=== PATIENT | male | born 1985 | race African-American/Black ===

== ENCOUNTER 2024-01-04 19:15 | Emergency (ER) | payer OTHER ==
[~2024-01-04] VITALS: Ht 182.9 cm; Wt 166.5 kg
[2024-01-04 19:36] VITALS: PULSE 84; RESP 20; TEMP 98.3
[2024-01-04] MEDS: IBUPROFEN 600 MG TAB PO STA (20:44)
[2024-01-04] MEDS ORDERED: AMOX TR-K CLV1 EAC2 PO (20:55)
[2024-01-04] MEDS ORDERED: ULTRAM 50MG50 MG PO (20:56)
[2024-01-04] MEDS ORDERED: NAPROSYN500 MG PO (20:56)
[2024-01-04] MEDS: AMOXICILLIN/CLAVULANATE K 875 MG TAB PO STA (21:08)
[2024-01-04 21:10] VITALS: BP 167/95; PULSE 84; RESP 18; TEMP 98.3; O2SAT 97
== END 2024-01-04 21:10 | disposition home or self-care (01) ==
LOC: FSED 19:20
DX: K11.21 Acute sialoadenitis (principal); R51.9 Headache, unspecified; I10 Essential (primary) hypertension; E66.01 Morbid (severe) obesity due to excess calories; Z68.42 Body mass index [BMI] 45.0-49.9, adult
CPT/HCPCS: 99282

== ENCOUNTER 2024-02-02 22:15 | Emergency (ER) | payer OTHER ==
[~2024-02-02] VITALS: Ht 182.9 cm; Wt 166.5 kg
[~2024-02-02 22:15] MED LIST: AMOX TR-K CLV1 EAC2 PO; NAPROSYN500 MG PO; ULTRAM 50MG50 MG PO
[2024-02-02] MEDS: DIPHENHYDRAMINE HCL INJ 50 MG/ML VIAL IV STA (23:10)
[2024-02-02] MEDS: SODIUM CHLORIDE 0.9% 1000ML 1,000 ML IV STA (23:11)
[2024-02-02] MEDS: METOCLOPRAMIDE HCL 10 MG/2ML VIAL IV STA (23:11)
[2024-02-02] MEDS: KETOROLAC TROMETHAMINE 30 MG/ML VIAL IV STA (23:12)
[2024-02-02] MEDS: METHYLPREDNISOLONE SOD SUCC 125 MG/2ML VIAL IV STA (23:12)
[2024-02-03 01:05] VITALS: PULSE 81; RESP 18; TEMP 97.9
[2024-02-03 02:30] VITALS: BP 121/65; PULSE 71; RESP 18; TEMP 98.6; O2SAT 100
== END 2024-02-03 00:25 | disposition home or self-care (01) ==
LOC: FSED 22:28
DX: R51.9 Headache, unspecified (principal); R07.89 Other chest pain; R94.31 Abnormal electrocardiogram [ECG] [EKG]; Z11.52 Encounter for screening for COVID-19
CPT/HCPCS: 0223U; 70450; 80048; 80076; 85025; 93005; 99284; J1200; J1885; J2765; J2919; J7030

== ENCOUNTER 2024-11-02 22:38 | Inpatient (IN) | payer OTHER ==
[~2024-11-02] VITALS: Ht 182.9 cm; Wt 173.7 kg
[2024-11-02 22:48] VITALS: TEMP 98.5
[2024-11-02] MEDS: NITROGLYCERIN 0.4 MG SUBL SL ONE (23:15)
[2024-11-02] MEDS ORDERED: METOPROLOL TARTRATE INJ 1 MG/ML VIAL ONE (23:44)
[2024-11-02] MEDS ORDERED: ASPIRIN 325 MG TAB ONE (23:45)
[2024-11-02] MEDS ORDERED: ONDANSETRON HCL INJ 2MG/ML 2ML 2 MG/ML VIAL IV PRN (23:45)
[2024-11-02] MEDS: ASPIRIN 325 MG TAB PO ONE (23:52)
[2024-11-02] MEDS: METOPROLOL TARTRATE INJ 1 MG/ML VIAL IV ONE (23:52)
[2024-11-03] VITALS (12 sets, daily range): BP systolic 153–171; BP diastolic 87–117; PULSE 62–81; RESP 17–20; TEMP 97.4–98.5; O2SAT 96–100
[2024-11-03] MEDS: METOPROLOL TARTRATE INJ 1 MG/ML VIAL IV ONE (00:36)
[2024-11-03] MEDS ORDERED: HYDRALAZINE HCL 20 MG/ML VIAL IV PRN (01:15)
[2024-11-03] MEDS ORDERED: ACETAMINOPHEN 325 MG TAB PO PRN (01:15)
[2024-11-03] MEDS ORDERED: LIDOCAINE 4% PATCH TP PRN (01:15)
[2024-11-03] MEDS ORDERED: SIMETHICONE 80 MG CHEW PO PRN (01:15)
[2024-11-03] MEDS ORDERED: DOCUSATE SODIUM 100 MG CAP PO PRN (01:15)
[2024-11-03] MEDS ORDERED: BENZONATATE 100 MG CAP PO PRN (01:15)
[2024-11-03] MEDS ORDERED: DIPHENHYDRAMINE HCL 25 MG CAP PO PRN (01:15)
[2024-11-03] MEDS ORDERED: POTASSIUM CHLORIDE 20 MEQ TAB CR PO PRN (01:15)
[2024-11-03] MEDS ORDERED: MELATONIN 5 MG TABLET PO PRN (01:15)
[2024-11-03] MEDS ORDERED: DEXTROSE 50% SYRINGE 50 ML IV PRN (01:15)
[2024-11-03] MEDS ORDERED: ALBUTEROL/IPRATROPIUM 3 ML NEB NEB PRN (01:15)
[2024-11-03] MEDS: Morphine 4mg INJECTION 4 MG/ML INJ IV PRN (02:25)
[2024-11-03] MEDS ORDERED: COREG12.5 MG PO (03:36)
[2024-11-03 07:47] LABS: TROPONIN I 0.015 ng/mL (0-0.300)
[2024-11-03] MEDS: PANTOPRAZOLE SOD 40 MG TABEC PO SCH (08:41)
[2024-11-03] MEDS: HYDROCHLOROTHIAZIDE 25 MG TAB PO SCH (11:39)
[2024-11-03] MEDS: LOSARTAN POTASSIUM 100 MG TAB PO SCH (11:40)
[2024-11-03 15:15] LABS: BASOPHILS % 0.5 % (0.0-1.0); EOSINOPHILS # (AUTO) 0.1 (0.0-0.4); EOSINOPHILS % 2.3 % (0.0-6.0); HEMATOCRIT 37.3 % (38.2-49.6); HEMOGLOBIN 12.1 g/dL (14.0-18.0); LYMPHOCYTES # (AUTO) 1.9 (1.0-3.2); LYMPHOCYTES % 33.9 % (18.0-39.1); MEAN CORPUSCULAR HEMOGLOBIN 28.1 pg (28-32); MEAN CORPUSCULAR HGB CONC 32.4 g/dL (31-35); MEAN CORPUSCULAR VOLUME 86.5 fL (81-99); MONOCYTES # (AUTO) 0.6 (0.2-0.8); MONOCYTES % 9.8 % (4.4-11.3); NEUTROPHILS % 53.3 % (38.7-80.0); PLATELET COUNT 134 x10e3/uL (140-360); RED BLOOD COUNT 4.31 x10e6/uL (4.3-5.7); RED CELL DISTRIBUTION WIDTH 12.8 % (11.7-14.4); WHITE BLOOD COUNT 5.63 x10e3/uL (4.8-10.8)
[2024-11-03] MEDS: KETOROLAC TROMETHAMINE 30 MG/ML VIAL IV SCH (16:08)
[2024-11-03] MEDS: ENOXAPARIN SOD INJ 40 MG/0.4 ML SYR SC SCH (16:08)
[2024-11-03] MEDS: CARVEDILOL 12.5 MG TAB PO SCH (16:09)
[2024-11-03 16:11] LABS: ANION GAP 13.5 mmol/L (8-16); CALCIUM 8.4 mg/dL (8.4-10.2); CREATININE, SERUM 0.98 mg/dL (0.72-1.25); POTASSIUM 3.5 mmol/L (3.5-5.1)
[2024-11-04] VITALS: BP 143/101; PULSE 70; RESP 22; TEMP 98.4; O2SAT 99
[2024-11-04 04:00] VITALS: BP 147/99; PULSE 58; RESP 20; TEMP 97.7; O2SAT 100
[2024-11-04 05:59] LABS: BASOPHILS % 0.6 % (0.0-1.0); EOSINOPHILS # (AUTO) 0.1 (0.0-0.4); EOSINOPHILS % 2.9 % (0.0-6.0); HEMATOCRIT 37.8 % (38.2-49.6); HEMOGLOBIN 12.2 g/dL (14.0-18.0); LYMPHOCYTES # (AUTO) 1.6 (1.0-3.2); LYMPHOCYTES % 33.5 % (18.0-39.1); MEAN CORPUSCULAR HGB CONC 32.3 g/dL (31-35); MEAN CORPUSCULAR VOLUME 86.7 fL (81-99); MONOCYTES # (AUTO) 0.5 (0.2-0.8); MONOCYTES % 9.6 % (4.4-11.3); NEUTROPHILS # (AUTO) 2.6 (2.1-6.9); NEUTROPHILS % 53.2 % (38.7-80.0); PLATELET COUNT 127 x10e3/uL (140-360); RED BLOOD COUNT 4.36 x10e6/uL (4.3-5.7); RED CELL DISTRIBUTION WIDTH 12.5 % (11.7-14.4)
[2024-11-04 06:21] VITALS: PULSE 72; RESP 20; O2SAT 95
[2024-11-04 06:31] LABS: ANION GAP 12.7 mmol/L (8-16); CALCIUM 8.2 mg/dL (8.4-10.2); CHOL/HDL RATIO 3.5 (3.9-4.7); CREATININE, SERUM 0.96 mg/dL (0.72-1.25); MAGNESIUM 1.8 MG/DL (1.3-2.1); POTASSIUM 3.7 mmol/L (3.5-5.1)
[2024-11-04 06:53] LABS: THYROID STIMULATING HORMONE 0.755 uIU/mL (0.350-4.940)
[2024-11-04 08:50] VITALS: BP 152/107; PULSE 76; RESP 20; TEMP 97.5; O2SAT 100
[2024-11-04 09:00] VITALS: BP 152/107; PULSE 76; RESP 20; TEMP 97.5; O2SAT 100
[2024-11-04] MEDS: ASPIRIN 81 MG ENTERIC COATED PO SCH (10:12)
[2024-11-04 10:13] VITALS: BP 157/107; PULSE 76
== END 2024-11-04 12:10 | disposition left against medical advice (07) | DRG 305 ==
LOC: FSED 23:01 → ERHOLD 23:44 → MED/SURG3 11-03 01:44
PROVIDERS: ADMIT Internal Medicine; ATTEND Internal Medicine
PROC: 4B02XTZ Measurement of Cardiac Defibrillator, External Approach (ICD-10-PCS; principal; 2024-11-03)
DX: I16.0 Hypertensive urgency (principal); Z68.43 Body mass index [BMI] 50.0-59.9, adult; I50.42 Chronic combined systolic (congestive) and diastolic (congestive) heart failure; I11.0 Hypertensive heart disease with heart failure; R07.89 Other chest pain; R68.84 Jaw pain; K08.89 Other specified disorders of teeth and supporting structures; Z53.29 Procedure and treatment not carried out because of patient's decision for other reasons; Z91.148 Patient's other noncompliance with medication regimen for other reason; I44.7 Left bundle-branch block, unspecified; Z45.02 Encounter for adjustment and management of automatic implantable cardiac defibrillator; E66.01 Morbid (severe) obesity due to excess calories; Z98.84 Bariatric surgery status; Z79.899 Other long term (current) drug therapy
CPT/HCPCS: 36415; 71046; 80048; 80053; 80061; 82550; 83036; 83735; 84443; 84484; 85025; 93005; 93306; 94799; 96374; 99284; J0295; J1650; J1885; J2270; J2470; J7050